=== PATIENT | male | born 1995 | race African-American/Black ===

== ENCOUNTER 2020-03-16 09:12 | Emergency (ER) | payer OTHER ==
[~2020-03-16] VITALS: Ht 180.3 cm; Wt 113.4 kg
[~2020-03-16 09:12] MED LIST: NORCO 5-325 TA1 EACH PO
[2020-03-16] MEDS ORDERED: NORCO 5-325 TA1 EACH PO (11:10)
== END 2020-03-16 12:48 | disposition home or self-care (01) ==
LOC: ED 09:12
PROC: 0RSKXZZ Reposition Left Shoulder Joint, External Approach (ICD-10-PCS; principal; 2020-03-16)
DX: S43.025A Posterior dislocation of left humerus, initial encounter (principal); F17.200 Nicotine dependence, unspecified, uncomplicated; W19.XXXA Unspecified fall, initial encounter
CPT/HCPCS: 23650; 73030; 99283-25; J1170; J2704

== ENCOUNTER 2020-05-24 21:54 | Emergency (ER) | payer OTHER ==
[~2020-05-24] VITALS: Ht 180.3 cm; Wt 106.5 kg
== END 2020-05-25 00:53 | disposition home or self-care (01) ==
LOC: ED 21:54
DX: M24.412 Recurrent dislocation, left shoulder (principal); J45.909 Unspecified asthma, uncomplicated; F17.200 Nicotine dependence, unspecified, uncomplicated
CPT/HCPCS: 23650; 73030; 99152; 99283-25; J1885; J2704

== ENCOUNTER 2021-08-21 18:34 | Emergency (ER) | payer SELFPAY ==
[~2021-08-21] VITALS: Ht 180.3 cm; Wt 111.1 kg
[2021-08-21] MEDS ORDERED: HYDROCODON-ACE1 EA10 PO (21:42)
== END 2021-08-21 22:26 | disposition home or self-care (01) ==
LOC: ED 18:34
DX: S43.025A Posterior dislocation of left humerus, initial encounter (principal); J45.909 Unspecified asthma, uncomplicated; F17.200 Nicotine dependence, unspecified, uncomplicated; X50.1XXA Overexertion from prolonged static or awkward postures, initial encounter
CPT/HCPCS: 23650; 73030; 99283-25; J1170; J2405; J2704; J7030

== ENCOUNTER 2023-01-20 06:59 | Emergency (ER) | payer OTHER ==
[~2023-01-20] VITALS: Ht 180.3 cm; Wt 111.1 kg
[~2023-01-20 06:59] MED LIST changes: +HYDROCODON-ACE1 EA10 PO
[2023-01-20] MEDS ORDERED: IBU600 MG PO (07:29)
[2023-01-20 07:41] VITALS: BP 143/81
== END 2023-01-20 07:42 | disposition home or self-care (01) ==
LOC: ED 06:59
DX: M24.412 Recurrent dislocation, left shoulder (principal); J45.909 Unspecified asthma, uncomplicated; F17.200 Nicotine dependence, unspecified, uncomplicated
CPT/HCPCS: 73030; 99283-25

== ENCOUNTER 2024-04-18 10:18 | Emergency (ER) | payer OTHER ==
[~2024-04-18] VITALS: Ht 180.3 cm; Wt 106.4 kg
[~2024-04-18 10:18] MED LIST changes: +IBU600 MG PO
[2024-04-18] MEDS ORDERED: HYDROXYZINE HCL25 MG PO (10:34)
[2024-04-18] MEDS ORDERED: LIDOCAINE HCL100 ML MT (10:42)
[2024-04-18 10:45] VITALS: BP 149/96
== END 2024-04-18 10:45 | disposition home or self-care (01) ==
LOC: ED 10:18
DX: K62.89 Other specified diseases of anus and rectum (principal); K60.2 Anal fissure, unspecified; F17.200 Nicotine dependence, unspecified, uncomplicated
CPT/HCPCS: 99283

== ENCOUNTER 2025-07-20 05:33 | Emergency (ER) | payer OTHER ==
[~2025-07-20] VITALS: Ht 180.3 cm; Wt 97.3 kg
[~2025-07-20 05:33] MED LIST changes: +HYDROXYZINE HCL25 MG PO; +LIDOCAINE HCL100 ML MT
[2025-07-20] MEDS ORDERED: KETOROLAC TROMETHAMINE 60 MG/2 ML VIAL IM ONE (05:45)
[2025-07-20 06:10] VITALS: BP 180/97
[2025-07-20] MEDS ORDERED: HYDROCODON-ACE1 EA10 PO (06:10)
[2025-07-20] MEDS ORDERED: HYDROCODONE BIT/ACETAMINOPHEN 5/325 MG 1 TAB HOME.PACK PO ONE (06:15)
== END 2025-07-20 06:10 | disposition home or self-care (01) ==
LOC: ED 05:33
DX: S86.911A Strain of unspecified muscle(s) and tendon(s) at lower leg level, right leg, initial encounter (principal); J45.909 Unspecified asthma, uncomplicated; F17.200 Nicotine dependence, unspecified, uncomplicated; X58.XXXA Exposure to other specified factors, initial encounter; Y93.67 Activity, basketball
CPT/HCPCS: 73560; 96372; 99283; A9270; J1885